=== PATIENT | male | born 1955 | race Caucasian/White ===

== ENCOUNTER 2018-03-19 22:04 | Emergency (ER) | payer BC, OTHER ==
[2018-03-19] MEDS ORDERED: TETRACAINE 0.5% 15 ML OPHT.BTL EACHEYE ONE (22:32)
--- NOTE | 2018-03-19 22:34 | EDPHY ---
H & P Stated Complaint: right eye pain - post op 2 weeks ago Time Seen by Provider: 03/19/18 22:32 HPI/ROS: HPI The patient presents with progressive right eye pain since about 7:00 p.m. Tonight, now rated as 10/10 and stabbing in nature. His symptoms started fairly suddenly while at rest and have gotten progressively worse. He has about 2 weeks postop from repair of a cataract which was dislodged by Dr. Snyder. Postoperatively he had difficulty with bleeding into his eye. He is on Coumadin for history of DVT. He is still taking the Coumadin. Yesterday he saw his control clerk subassembly who thought that she might need to drain the blood from his eye. Since the operation he has had minimal vision in his eye seeing only shadows this is unchanged tonight.. REVIEW OF SYSTEMS Constitutional: No fever, no chills. Eyes: No discharge. ENT: No sore throat. Cardiovascular: No chest pain, no palpitations. Respiratory: No cough, no shortness of breath. Gastrointestinal: No abdominal pain, no vomiting. Genitourinary: No hematuria. Musculoskeletal: No back pain. Skin: No rashes. Neurological: No headache. PMHx: History of DVT on Coumadin Soc Hx: Housed PHYSICAL General Appearance: Alert, uncomfortable appearing EYE EXAM Visual Acuity: Right eye has light perception only Pupils: Round, not reactive Skin: no proptosis, no periorbital erythema or swelling, no vesicles Conjunctivae: Diffusely injected with watery discharge Luís-Pen pressures 90, 95, 95 ENT, Mouth: Breathing comfortably Neurological: A&O, moves all extremities Skin: Warm and dry, no rashes Musculoskeletal: Neck is supple non tender Extremities: symmetrical, full range of motion Psychiatric: Patient is oriented X 3, there is no agitation Source: Patient Exam Limitations: No limitations - Personal History Current Tetanus Diphtheria and Acellular Pertussis (TDAP): Yes - Medical/Surgical History Hx Asthma: No Hx Chronic Respiratory Disease: No Hx Diabetes: No Hx Cardiac Disease: No Hx Renal Disease: No Hx Cirrhosis: No Hx Alcoholism: No Hx HIV/AIDS: No Hx Splenectomy or Spleen Trauma: No Other PMH: bloot clot - Social History Smoking Status: Never smoked Constitutional: Initial Vital Signs Temperature (C) 36.8 C 03/19/18 22:08 Heart Rate 62 03/19/18 22:08 Respiratory Rate 20 03/19/18 22:08 Blood Pressure 203/104 H 03/19/18 22:08 O2 Sat (%) 95 03/19/18 22:08 O2 Delivery Mode Room Air Allergies/Adverse Reactions: No Known Allergies Allergy (Unverified 03/19/18 22:07) Home Medications: Medication Instructions Recorded Warfarin Sodium 03/19/18 Medical Decision Making Differential Diagnosis: 62-year-old male with recent ophthalmological operation to repair cataract, with intra-ocular hemorrhage subsequently. Patient is on Coumadin. He has had eye pain for the last 2 weeks after his operation, however pain became much worse tonight. Luís-Pen pressures are in the 90s. His primary control clerk subassembly Dr. Snyder called into the emergency department and we have discussed his case. She will meet him in her office immediately. We will discharge him from the emergency department and he will go there with his partner for further evaluation. Differential diagnosis includes acute closed angle glaucoma, intra-ocular hemorrhage, corneal abrasion. - Data Points Medications Given: Discontinued Medications Hydromorphone HCl (Dilaudid) 1 mg IM EDNOW ONE Stop: 03/19/18 22:42 Last Admin: 03/19/18 22:52 Dose: 1 mg Hydromorphone HCl (Dilaudid) 1 mg IM EDNOW ONE Stop: 03/19/18 23:11 Last Admin: 03/19/18 23:16 Dose: 1 mg Proparacaine HCl/Fluorescein Sodium (Flucaine) 2 drops OP EDNOW ONE Stop: 03/19/18 22:47 Last Admin: 03/19/18 23:02 Dose: 2 drops Tetracaine HCl (Tetracaine 0.5%) 1 drops EACHEYE ONCE ONE Stop: 03/19/18 22:33 Last Admin: 03/19/18 23:02 Dose: 1 drop Departure - Departure Disposition: Home, Routine, Self-Care Clinical Impression: Increased intraocular pressure Condition: Good Instructions: Eye Pain (ED) Additional Instructions: Please go directly to the control clerk subassembly's office across the street. She will need to their for further care. Referrals: Roberta Valdez MD [Non Staff Provider (MD)] - As per Instructions
[2018-03-19] MEDS ORDERED: HYDROmorphONE/DILAUDID 2 MG/ML INJ IM ONE ×2 (22:41→23:10)
[2018-03-19] MEDS ORDERED: PROPARACAINE/FLUORESCEIN SOD 5 ML OPHT.BTL OP ONE (22:46)
[2018-03-19 23:25] VITALS: BP 199/105
== END 2018-03-19 23:25 | disposition home or self-care (01) ==
DX: H40.051 Ocular hypertension, right eye (principal); Z79.01 Long term (current) use of anticoagulants
CPT/HCPCS: J1170